=== PATIENT | male | born 1975 | race Caucasian/White ===

== ENCOUNTER 2017-10-10 10:14 | Emergency (ER) | payer BC ==
[2017-10-10] MEDS ORDERED: Acetaminophen/HYDROcodone 325-5 MG Tab PO ONE (11:20)
--- NOTE | 2017-10-10 11:25 | EDM.PDOC ---
ED HPI GENERAL MEDICAL PROBLEM - General Chief Complaint: Genitourinary Problem Stated Complaint: POSSIBLE INFECTION IN STOMACH Time Seen by Provider: 10/10/17 10:18 Source of Information: Reports: Patient History Limitations: Reports: No Limitations - History of Present Illness INITIAL COMMENTS - FREE TEXT/NARRATIVE: HISTORY AND PHYSICAL: History of present illness: Patient is a 41-year-old male who presents to the emergency room with concerns of a suprapubic catheter insert site infection. 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 He last had surgery 3 weeks ago which required him to have a suprapubic catheter placement while he is healing. He states over the past 4 days he has had slight redness around the catheter insight area and tenderness with palpation. He is concerned that he may have an infection and wanted to be evaluated. He was taking oxycodone for pain and has ran out. States he is having penile and suprapubic site pain and is requesting better management. Review of systems: As per history of present illness and below otherwise all systems reviewed and negative. Past medical history: As per history of present illness and as reviewed below otherwise noncontributory. Surgical history: As per history of present illness and as reviewed below otherwise noncontributory. Social history: No reported history of drug or alcohol abuse. Family history: As per history of present illness and as reviewed below otherwise noncontributory. Physical exam: General: Well-developed and well-nourished 41-year-old male. Alert and oriented. Nontoxic appearing and in no acute distress. HEENT: Atraumatic, normocephalic, pupils equal and reactive bilaterally, negative for conjunctival pallor or scleral icterus, mucous membranes moist, throat clear, neck supple, nontender, trachea midline. No drooling or trismus noted. No meningeal signs Lungs: Clear to auscultation, breath sounds equal bilaterally, chest nontender. Heart: S1S2, regular rate and rhythm without overt murmur Abdomen: Soft, nondistended, nontender. Negative for masses or hepatosplenomegaly. Negative for costovertebral tenderness. Pelvis: Stable nontender. Genitourinary: Deferred. Rectal: Deferred. Skin: Mild erythema noted around the suprapubic Fuentes insert site. The surgery to his penis shows no signs of infection (no errythema, swelling, or tenderness) . Does have a fuentes in his urethra. Otherwise intact, warm, dry. No lesions or rashes noted. Extremities: Atraumatic, negative for cords or calf pain. Neurovascular unremarkable. Neuro: Awake, alert, oriented. Cranial nerves II through XII unremarkable. Cerebellum unremarkable. Motor and sensory unremarkable throughout. Exam nonfocal. Notes: Patient's labs are normal. X-ray identifies the Fuentes catheter. The area around the suprapubic catheter insert site is slightly erythematous. He is requesting bacitracin (normally places it around both catheter sites). Will place the patient on Bactrim DS and prescribe [place]. Patient states he has been out of his oxycodone for several days. Does have a appointment at the end of the month with his physician in [place] to have post surgery follow-up. I requested that they inform them he was seen/evaluated in our emergency room. Diagnostics: CBC, CMP, UA, pelvis x-ray Therapeutics: [place], bacitracin Impression: Skin infection Plan: 1. Take the Bactrim DS one tab twice daily 10 days. 2. Tylenol and/or ibuprofen as needed for pain management. [place] has been prescribed for moderate to severe pain. He may take 1-2 tablets every 4-6 hours as needed. This medication does cause drowsiness a do not take it when needing to be functioning outside of the house or while driving. 3. Please inform your physician in [place] of your concerns/visit today. Keep your appointment for the end of the month. 4. Return to the ED as needed and as discussed. Definitive disposition and diagnosis as appropriate pending reevaluation and review of above. Onset: Gradual Duration: Day(s): Location: Reports: Abdomen Abdominal Pain Score (Numeric/FACES): 7 - Related Data Allergies Allergy/AdvReac Type Severity Reaction Status Date / Time No Known Allergies Allergy Verified 05/24/14 19:12 Home Meds: Home Meds ClonazePAM [KlonoPIN] 1 tab PO ASDIRECTED PRN 05/14/14 [History] Lisinopril 1 tab PO ASDIRECTED 05/14/14 [History] oxyCODONE HCl/Acetaminophen [Percocet 5-325 mg Tablet] 1 tab PO ASDIRECTED 10/10 [History] Past Medical History Cardiovascular History: Reports: Hypertension Genitourinary History: Reports: Other (See Below) Other Genitourinary History: 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 Psychiatric History: Reports: Anxiety Social & Family History - Family History Family Medical History: Noncontributory - Tobacco Use Smoking Status *Q: Never Smoker Years of Tobacco use: 14 - Caffeine Use Caffeine Use: Reports: None - Alcohol Use Days Per Week of Alcohol Use: 6 Number of Drinks Per Day: 2 Total Drinks Per Week: 12 - Recreational Drug Use Recreational Drug Use: No Drug Use in Last 12 Months: No Recreational Drug Type: Reports: Marijuana/Hashish Recreational Drug Use Frequency: Not Used In Over 6 Months ED ROS GENERAL - Review of Systems Review Of Systems: ROS reveals no pertinent complaints other than HPI. ED EXAM, GENERAL - Physical Exam Exam: See Below (See dictation) Course - Vital Signs Last Recorded V/S: Last Vital Signs Temp 97.7 F 10/10/17 10:23 Pulse 118 H 10/10/17 10:23 Resp 20 10/10/17 10:23 BP 119/81 10/10/17 10:23 Pulse Ox 99 10/10/17 10:23 - Orders/Labs/Meds Orders: Active Orders 24 hr Category Date Time Status UA W/MICROSCOPIC [URIN] Stat Lab 10/10/17 11:32 Ordered Bacitracin [Bacitracin Oint 1 GM] Med 10/10/17 12:08 Once 3 dose TOP ONETIME ONE Labs: Laboratory Tests 10/10/17 10/10/17 10/10/17 Range/Units 10:43 10:43 11:32 WBC 7.46 (4.0-11.0) K/uL RBC 4.56 (4.50-5.90) M/uL Hgb 14.2 (13.0-17.0) g/dL Hct 39.2 (38.0-50.0) % MCV 86.0 (80.0-98.0) fL MCH 31.1 (27.0-32.0) pg MCHC 36.2 (31.0-37.0) g/dL RDW Std Deviation 37.1 (28.0-62.0) fl RDW Coeff of Monse 12 (11.0-15.0) % Plt Count 144 L (150-400) K/uL MPV 9.20 (7.40-12.00) fL Neut % (Auto) 67.2 (48.0-80.0) % Lymph % (Auto) 21.0 (16.0-40.0) % [place] % (Auto) 8.3 (0.0-15.0) % Eos % (Auto) 3.2 (0.0-7.0) % Baso % (Auto) 0.3 (0.0-1.5) % Neut # (Auto) 5.0 (1.4-5.7) K/uL Lymph # (Auto) 1.6 (0.6-2.4) K/uL [place] # (Auto) 0.6 (0.0-0.8) K/uL Eos # (Auto) 0.2 (0.0-0.7) K/uL Baso # (Auto) 0.0 (0.0-0.1) K/uL Nucleated RBC % 0.0 /100WBC Nucleated RBCs # 0 K/uL Sodium 139 (136-148) mmol/L Potassium 4.2 (3.5-5.1) mmol/L Chloride 103 (98-107) mmol/L Carbon Dioxide 28.6 (21.0-32.0) mmol/L BUN 13 (7.0-18.0) mg/dL Creatinine 1.0 (0.8-1.3) mg/dL Est Cr Clr Drug Dosing 98.62 mL/min Estimated GFR (MDRD) > 60.0 ml/min Glucose 157 H (74-106) mg/dL Calcium 9.2 (8.5-10.1) mg/dL Total Bilirubin 1.1 H (0.2-1.0) mg/dL AST 16 (15-37) IU/L ALT 21 (14-63) IU/L Alkaline Phosphatase 68 (46-116) U/L Total Protein 7.5 (6.4-8.2) g/dL Albumin 4.0 (3.4-5.0) g/dL Globulin 3.5 (2.0-3.5) g/dL Albumin/Globulin Ratio 1.1 L (1.3-2.8) Urine Color YELLOW Urine Appearance CLEAR Urine pH 6.0 (5.0-8.0) Ur Specific [place] 1.020 (1.001-1.035) Urine Protein NEGATIVE (NEGATIVE) mg/dL Urine Glucose (UA) NEGATIVE (NEGATIVE) mg/dL Urine Ketones NEGATIVE (NEGATIVE) mg/dL Urine Occult Blood TRACE-INTACT (NEGATIVE) Urine Nitrite NEGATIVE (NEGATIVE) Urine Bilirubin NEGATIVE (NEGATIVE) Urine Urobilinogen 0.2 (<2.0) EU/dL Ur Leukocyte Esterase TRACE (NEGATIVE) Urine RBC 0-1 (0-2/HPF) Urine WBC 0-2 (0-5/HPF) Ur Epithelial Cells FEW (NONE-FEW) Urine Bacteria FEW (NEGATIVE) Urine Mucus LIGHT (NONE-MOD) Meds: Medications Discontinued Medications Generic Name Dose Route Start Last Admin Trade Name Freq PRN Reason Stop Dose Admin Hydrocodone Bitart/Acetaminophen 1 tab 10/10/17 11:20 10/10/17 11:40 [place] 325-5 Mg PO 10/10/17 11:21 1 tab ONETIME ONE Administration Departure - Departure Time of Disposition: 11:57 Disposition: Home, Self-Care 01 Clinical Impression: Skin infection - Discharge Information Referrals: Kitty Rivas DO [Primary Care Provider] - Forms: ED Department Discharge Additional Instructions: The following information is given to patients seen in the emergency department who are being discharged to home. This information is to outline your options for follow-up care. We provide all patients seen in our emergency department with a follow-up referral. The need for follow-up, as well as the timing and circumstances, are variable depending upon the specifics of your emergency department visit. If you don't have a primary care physician on staff, we will provide you with a referral. We always advise you to contact your personal physician following an emergency department visit to inform them of the circumstance of the visit and for follow-up with them and/or the need for any referrals to a consulting specialist. The emergency department will also refer you to a specialist when appropriate. This referral assures that you have the opportunity for follow-up care with a specialist. All of these measure are taken in an effort to provide you with optimal care, which includes your follow-up. Under all circumstances we always encourage you to contact your private physician who remains a resource for coordinating your care. When calling for follow-up care, please make the office aware that this follow-up is from your recent emergency room visit. If for any reason you are refused follow-up, please contact the Emergency Department at and asked to speak to the emergency department charge nurse. [facility] [address] [place] [id number] 1. Take the Bactrim DS one tab twice daily 10 days. 2. Tylenol and/or ibuprofen as needed for pain management. [place] has been prescribed for moderate to severe pain. He may take 1-2 tablets every 4-6 hours as needed. This medication does cause drowsiness a do not take it when needing to be functioning outside of the house or while driving. 3. Please inform your physician in [place] of your concerns/visit today. Keep your appointment for the end of the month. 4. Return to the ED as needed and as discussed. - My Orders Last 24 Hours: My Active Orders 10/10/17 11:32 UA W/MICROSCOPIC [URIN] Stat 10/10/17 12:08 Bacitracin [Bacitracin Oint 1 GM] 3 dose TOP ONETIME ONE - Assessment/Plan Last 24 Hours: My Active Orders 10/10/17 11:32 UA W/MICROSCOPIC [URIN] Stat 10/10/17 12:08 Bacitracin [Bacitracin Oint 1 GM] 3 dose TOP ONETIME ONE
--- NOTE | 2017-10-10 11:25 | CR ---
EXAMINATION: Pelvis HISTORY: Check and catheter placement. COMPARISON: None TECHNIQUE: AP view of the pelvis FINDINGS: There is no acute osseous abnormality, dislocation, or fracture. SI joints are symmetric. H ip joint spaces are preserved. The iliopectineal lines are intact. No abnormal calcifications identif ied. There is likely a Martin versus straight catheter projecting over the lower pelvis. No balloon demonstrated within the region of the bladder. The catheter tip location is not well demon strated. IMPRESSION: Unremarkable pelvis.
[2017-10-10 11:28] LABS: CHLORIDE,CL 103 mmol/L (98-107); SODIUM,NA 139 mmol/L (136-148)
[2017-10-10] MEDS ORDERED: Bacitracin Oint 1 GM U/D Packet TOP ONE (12:08)
[2017-10-10 13:01] VITALS: BP 110/68
== END 2017-10-10 12:25 | disposition home or self-care (01) ==
LOC: MW.ED 10:14
DX: T81.4XXA Infection following a procedure, initial encounter (principal); I10 Essential (primary) hypertension; Z98.890 Other specified postprocedural states
CPT/HCPCS: 36415; 72170; 80053; 81001; 85025; 99283; A9270

== ENCOUNTER 2019-10-03 21:20 | Emergency (ER) | payer BC ==
[2019-10-03] MEDS ORDERED: traMADol 50 MG Tab PO ONE ×2 (22:12→22:56)
--- NOTE | 2019-10-03 22:59 | EDM.PDOC ---
ED HPI GENERAL MEDICAL PROBLEM - General Chief Complaint: Genitourinary Problem Stated Complaint: POSSIBLE URINE INFECTION Time Seen by Provider: 10/03/19 21:50 Source of Information: Reports: Patient - History of Present Illness INITIAL COMMENTS - FREE TEXT/NARRATIVE: The patient is a 43-year-old male who presents to the ER for dysuria and lower suprapubic discomfort. The patient has a history of a very complex urethral surgery a couple of years ago for which he has scar tissue, and the patient takes tramadol 50 mg 3 times daily. He actually ran out of his prescription yesterday and now he is having a lot of dysuria. He is unsure if he can fully empty and he is not sure if something new is going on or if this is simply that he is out of his medication. No fevers, no hematuria, no back pain, no other acute complaints. 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 All other pertinent systems were reviewed and are negative) ED EXAM, GI/ABD - Physical Exam Exam: See Below Text/Narrative:: Constitutional: No acute distress, Non-toxic appearance. HEENT: Normocephalic, Atraumatic, EOMI Neck: Normal range of motion, No stridor, trachea midline Respiratory: No respiratory distress, No tachypnea Cardiovascular: Deferred Gastrointestinal: Soft without any reproducible tenderness Genital / Urinary: Penis does not show any acute process, no urethral discharge , no surrounding inflammation Musculoskeletal: All four extremities present and atraumatic Back: FROM Integument: Warm, Dry, Color is ethnicity appropriate, No rash. Neuro: Alert, Awake, No focal deficits noted Psych: Affect, Judgement, mood normal Course - Vital Signs Text/Narrative:: Urinalysis was obtained which is unremarkable from an emergency standpoint. Gonorrhea and chlamydia were also ordered and the cultures are running. We also performed a bedside transabdominal bladder ultrasound and it shows that his bladder has completely emptied so the patient will not require a Martin catheter as I was considering urinary retention secondary to urethral strictures. The patient will also be given 1 dose of tramadol 50 mg orally in the ER and one 50 mg tablet to go home with. He states that he will contact his physician for a refill on his prescriptions tomorrow as well as follow-up on his dysuria. Last Recorded V/S: Last Vital Signs Temp 99 C H 10/03/19 21:37 Pulse 98 10/03/19 21:37 Resp BP Pulse Ox - Orders/Labs/Meds Orders: Active Orders 24 hr Category Date Time Status CHLAMYDIA AND GONORRHEA BY TMA Stat Lab 10/03/19 21:35 Received CULTURE URINE [RM] Stat Lab 10/03/19 21:35 Received Labs: Laboratory Tests 10/03/19 Range/Units 21:35 Urine Color YELLOW Urine Appearance CLEAR Urine pH 7.5 (5.0-8.0) Ur Specific [place] 1.015 (1.001-1.035) Urine Protein 30 H (NEGATIVE) mg/dL Urine Glucose (UA) NEGATIVE (NEGATIVE) mg/dL Urine Ketones NEGATIVE (NEGATIVE) mg/dL Urine Occult Blood MODERATE H (NEGATIVE) Urine Nitrite NEGATIVE (NEGATIVE) Urine Bilirubin NEGATIVE (NEGATIVE) Urine Urobilinogen 0.2 (<2.0) EU/dL Ur Leukocyte Esterase MODERATE H (NEGATIVE) Urine RBC 2-3 (0-2/HPF) Urine WBC 2-3 (0-5/HPF) Ur Epithelial Cells RARE (NONE-FEW) Urine Bacteria 1+ H (NEGATIVE) Meds: Medications Discontinued Medications Generic Name Dose Route Start Last Admin Trade Name Freq PRN Reason Stop Dose Admin Tramadol HCl 50 mg 10/03/19 22:12 10/03/19 22:23 Ultram PO 10/03/19 22:13 50 mg ONETIME ONE Administration Departure - Departure Time of Disposition: 22:59 Disposition: Home, Self-Care 01 Condition: Good Clinical Impression: Dysuria - Discharge Information Referrals: Kitty Rivas DO [Primary Care Provider] - Additional Instructions: Follow-up with your doctor as instructed. Sepsis Event Note - Evaluation Sepsis Screening Result: No Definite Risk - Focused Exam Vital Signs: Vital Signs Temp Pulse 10/03/19 21:37 99 C H 98 Date Exam was Performed: 10/03/19 Time Exam was Performed: 22:54
[2019-10-04 00:28] VITALS: BP 133/80; PULSE 73
[2019-10-05 11:02] LABS: C.TRACHOMATIS BY TMA Negative (Negative); N.GONORRHOEAE BY TMA Negative (Negative)
== END 2019-10-03 22:19 | disposition home or self-care (01) ==
LOC: MW.ED 21:20
DX: R30.0 Dysuria (principal); I10 Essential (primary) hypertension; Z79.899 Other long term (current) drug therapy
CPT/HCPCS: 81001; 87086; 87088; 87186; 87491; 87591; 99283; A9270; 99282